=== PATIENT | male | born 1955 | race Caucasian/White ===

== ENCOUNTER 2020-08-29 16:35 | Emergency (ER) | payer MEDICARE, SELFPAY ==
--- NOTE | ~2020-08-29 | XR_ITS ---
EXAMINATION: XR chest 2V DATE: 08/29/2020 16:49 INDICATION: Cough. TECHNIQUE: Frontal and lateral views of the chest were obtained on 3 radiographs. COMPARISON: None. FINDINGS: The chest demonstrates clear lungs without pneumonia, pleural effusion, or pneumothorax. Th e heart size is normal. There are old healed right rib fractures. There is mild chronic anterior wedg ing of 2 vertebral bodies near the thoracolumbar junction. IMPRESSION: 1. No acute cardiopulmonary disease. Reviewed, dictated and finalized at location A.
--- NOTE | 2020-08-29 17:32 | ED.GENADULT ---
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 Spouse reports cough started off dry now rattle-wet cough and increasing. No treatment. Constant rattle-wet cough. No rhinorrhea and nasal congestion. Denies sore throat. No high fevers, drooling, neck or throat swelling. No chest pain, wheezing, or shortness of breath. No exacerbation factors. Denies nausea, vomiting, and abdominal pain. Tolerating liquids well. Remains active. The patient's spouse reports Uriah have not been diagnosed with COVID-19. The patient's spouse reports they received 2 Moderna COVID-19 vaccine over 2 months ago. The patient's spouse reports they are not waiting for the results of a COVID-19 lab test. The patient's spouse reports reports they do not have chills, weakness, fatigue, or myalgia. The patient's spouse reports they do not have a not have any loss of taste or smell and diarrhea. Recent traveling, returned from [place] on 08/28/2020 per spouse. Denies concerns for COVID-19 or exposures. At this time, patient is not suspected of having COVID-19. Some parts of this dictation were generated by voice recognition software and may contain typographical and/or grammatical inaccuracies. Related Data Home Medications Medication Instructions Recorded Confirmed risperidone 0.5 mg tablet 0.5 mg PO BID 05/02/19 08/02/20 paroxetine HCl mg PO 08/29/20 Allergies Allergy/AdvReac Type Severity Reaction Status Date / Time No Known Allergies Allergy Verified 08/02/20 09:25 Review of Systems Review of Systems: Narrative: CONSTITUTIONAL: Denies fever, chills, sweats. EYES: Denies visual changes, redness, discharge. ENT: Denies rhinorrhea, congestion, sore throat, otalgia. CARDIOVASCULAR: Denies chest pain, palpitations, edema. RESPIRATORY: Denies dyspnea, wheezing. Complains of constant rattle-wet cough. GASTROINTESTINAL: Denies abdominal pain, nausea, vomiting, diarrhea. SKIN: Denies rash or itching. MUSCULOSKELETAL: Denies acute back pain, joint pain, or myalgia. NEUROLOGIC: Denies numbness or focal weakness. PSYCHIATRIC: Denies anxiety or depression. All systems reviewed & are unremarkable except as noted in HPI and below. [facility] Past Medical History Medical History (Updated 08/29/20 @ 18:23 by MAIN Barnhart) Chewing tobacco nicotine dependence Fall numerous related to [place]'s disease [place]'s disease Seborrheic keratosis Verrucous lesion of skin Surgical History Surgical History (Updated 08/29/20 @ 18:20 by MAIN Barnhart) No significant past surgical history Family History Family History (Updated 08/29/20 @ 18:23 by MAIN Barnhart) Father , related to cancer at age 89 Cancer Mother , related to Emma's disease at age 70 Emma's disease Sibling , 5 siblings whom all had Emma's disease (Uriah the 4th of 6th kids) from the age of 58-66 Emma's disease Social History Social History (Updated 08/29/20 @ 18:24 by MAIN Barnhart) Smoking status: Current every day smoker Tobacco type: smokeless tobacco Second hand tobacco smoke exposure: No Alcohol intake: current Substance use: never Substance use type: does not use Living arrangements: with family Additional living arrangements comments: spouse Occupation/Education: other Additional occupation/education comments: disable Gender identity (if verbalized by the patient): Male Sexual Orientation (if Verbalized by the Patient): Straight or Heterosexual Comments
[2020-08-29 17:36] VITALS: BP 119/76; PULSE 81; RESP 16; TEMP 36.4; O2SAT 99
== END 2020-08-29 17:57 | disposition home or self-care (01) ==
PROVIDERS: Emergency Provider Nurse Practitioner Family; PCP Family Medicine
DX: J40 Bronchitis, not specified as acute or chronic (principal); F17.290 Nicotine dependence, other tobacco product, uncomplicated; G10 Huntington's disease
CPT/HCPCS: 71046; 99213; G0463

== ENCOUNTER 2021-12-18 09:14 | Outpatient (RCR) | payer MEDICARE, SELFPAY ==
[2021-12-18 09:51] VITALS: BMI 18.3
--- NOTE | 2022-01-13 12:31 | PCWOUND ---
CWON NOTE Patient's left voicemail to cancel appointment for 01/14/22. States that the wound is essentially closed and does not feel he needs to keep his appointment.
== END 2022-03-03 09:49 | disposition home or self-care (01) ==
LOC: ANHWOC 09:14
PROVIDERS: PCP Family Medicine; Visit Provider Family Medicine
DX: S31.809D Unspecified open wound of unspecified buttock, subsequent encounter (principal)
CPT/HCPCS: 99212; G0463

== ENCOUNTER 2022-09-22 15:44 | Emergency (ER) | payer MEDICARE, SELFPAY ==
[2022-09-22 16:06] VITALS: BP 112/55; PULSE 81; RESP 20; TEMP 36.9; O2SAT 97
--- NOTE | 2022-09-22 17:26 | ED.UPPEXIN ---
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 He fell out of his bed last Thursday. Over the last couple days he has developed swelling to his right elbow. He maintains range of motion and has minimal tenderness. There is edema. No erythema. No fevers or chills or sweats. Was referred here by urgent care. Patient had an outpatient x-ray that showed no fracture according to his caregiver. Related Data Home Medications Medication Instructions Recorded Confirmed paroxetine HCl 20 mg tablet 20 mg PO DAILY 08/29/20 12/18/21 oxybutynin chloride 15 mg 15 mg PO DAILY 12/13/21 12/18/21 tablet,extended release 24 hr risperidone 2 mg tablet 2 mg PO BID 12/13/21 12/18/21 Allergies Allergy/AdvReac Type Severity Reaction Status Date / Time No Known Allergies Allergy Verified 09/22/22 16:11 Review of Systems Review of Systems: ROS unobtainable: Yes unobtainable due to medical condition [facility] Past Medical History Medical History (Updated 09/22/22 @ 17:28 by Garfield Llanos MD) 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 Seborrheic keratosis Verrucous lesion of skin Surgical History Surgical History No significant past surgical history Family History Family History Father , related to cancer at age 89 Cancer Mother , related to Emma's disease at age 70 Emma's disease Sibling , 5 siblings whom all had Ziebach's disease (Uriah the 4th of 6th kids) from the age of 58-66 Ziebach's disease Social History Social History (Updated 12/13/21 @ 13:46 by Tamy Carrizales [facility]) Smoking status: Unknown if ever smoked Smokeless tobacco user: chewing tobacco Second hand tobacco smoke exposure: No Alcohol intake: current Substance use: never Substance use type: does not use Living arrangements: with family Additional living arrangements comments: spouse Occupation/Education: other Additional occupation/education comments: disable Gender identity (if verbalized by the patient): Male Sexual Orientation (if Verbalized by the Patient): Straight or Heterosexual Exam Narrative: GENERAL: Chronically ill-appearing with spasms consistent with Ziebach's. HEAD: Normocephalic, atraumatic. ENT: Lips dry and cracked. EXTREMITIES: Right upper extremity with edema over the bursa as well as the proximal forearm. No erythema or purulent drainage. No induration. Patient is able to move the arm though it is spastic and rigid. SKIN: Warm, dry, no rash. NEURO: Patient awake and alert and at neurologic baseline. Makes attempts to answer questions that are simple but has difficulty with overall communication. PSYCH: Normal mood and affect. Course Course Emergency Course: Discussed conservative management with caregiver. Discussed protecting the elbow to prevent recurrent irritation. Apparently at home the patient sits in a lazy boy that has a lot of padding and they will add pillows. Patient is not a good candidate to place in a sling or immobilizer due to his spastic movements. Vital Signs Vital signs: Vital Signs Temperature 98.4 F 09/22/22 16:06 Pulse Rate 81 09/22/22 16:06 Respiratory Rate 20 09/22/22 16:06 Blood Pressure 112/55 L 09/22/22 16:06 Pulse Oximetry 97 09/22/22 16:06 Oxygen Delivery Room Air 09/22/22 16:06 Temperature 98.4 F 09/22/22 16:06 Pulse Rate 81 09/22/22 16:06 Respiratory Rate 20 09/22/22 16:06 Blood Pressure 112/55 L 09/22/22 16:06 Pulse Oximetry
== END 2022-09-22 17:40 | disposition home or self-care (01) ==
PROVIDERS: Emergency Provider Emergency Medicine; PCP Family Medicine Sports Medicine
DX: M70.21 Olecranon bursitis, right elbow (principal)
CPT/HCPCS: 99283

== ENCOUNTER 2022-10-10 13:14 | Outpatient (CLI) | payer MEDICARE, SELFPAY ==
[2022-10-10 13:40] LABS: Appearance Urine Clear (Clear); Bilirubin Urine Negative (Negative); Blood Urine Negative (Negative); Color Urine Yellow (Yellow); Glucose Urine UA Negative (Negative); Ketones Urine Negative (Negative); Leukocyte Esterase Ur Negative LEU/UL (Negative); Nitrate Urine Negative (Negative); Protein Urine Negative (Negative); Specific Grav Ur 1.017 (1.001-1.035)
[2022-10-10 13:42] LABS: Add Urine Microscopic? NO
== END 2022-10-10 13:15 | disposition home or self-care (01) ==
LOC: ANHLAB 13:17
PROVIDERS: PCP Family Medicine Sports Medicine; Visit Provider Orthopaedic Surgery
DX: E88.81 Metabolic syndrome and other insulin resistance (principal)
CPT/HCPCS: 81003

== ENCOUNTER 2022-10-10 13:27 | Outpatient (NON) | payer MEDICARE, SELFPAY | END 2022-10-10 13:28 | disposition home or self-care (01) | PROVIDERS: PCP Family Medicine Sports Medicine; Visit Provider Orthopaedic Surgery | DX: M25.521 Pain in right elbow (principal) | CPT/HCPCS: 81003; 87070; 87075; 87147; 87181; 87186; 87205 ==